=== PATIENT | male | born 1955 | race Caucasian/White ===

== ENCOUNTER → 2019-07-07 | Outpatient (CLI) | payer BC ==
--- NOTE | 2019-07-07 15:04 | PCVCIMAG ---
APPROVED REPORT Indications Syncope Doppler Spectral Velocity Analysis PSV / EDVPSV / EDV ECA (R) 101 / 9 cm/sECA (L) 86 / 12 cm/s dICA (R) 71 / 25 cm/sdICA (L) 78 / 20 cm/s Saud (R) 76 / 23 cm/smICA (L) 83 / 26 cm/s pICA (R) 64 / 16 cm/spICA (L) 63 / 21 cm/s Bulb (R) 67 / 15 cm/sBulb (L) 81 / 16 cm/s dCCA (R) 75 / 16 cm/sdCCA (L) 86 / 19 cm/s mCCA (R) 82 / 19 cm/smCCA (L) 114 / 20 cm/s Vert (R) 66 / 23 cm/sVert (L) 41 / 10 cm/s ICA/CCA 1.01ICA/CCA 0.97 Basic Measurements Blood Pressure: Pulses: Right Left RightLeft Brachial(Sitting) 136/98agFo442/86mmHgTemporal Real Time B-Mode Imaging Vert. (R)AntegradeVert. (L)Antegrade Findings The right carotid bulb has minimal plaque. The right proximal internal carotid artery shows no significant stenosis. The right common carotid artery shows no significant stenosis. The right external carotid artery shows no significant stenosis. The left carotid bulb has minimal plaque. The left proximal internal carotid artery shows no significant stenosis. The left common carotid artery shows no significant stenosis. The left external carotid artery shows no significant stenosis. Conclusion 1. Minimal bilateral plaquing without significant stenosis. 2. Antegrade vertebral flow.
--- NOTE | 2019-07-08 09:27 | PCVCIMAG ---
APPROVED REPORT Study performed: 07/07/2019 14:35:53 Exam: Stress Echocardiogram Indication: Syncope, Abn EKG Patient Location: Echo lab Stress Nurse: Mary Lou Daniel RN Room #: 2 Status: routine Ht: 5 ft 8 in HR: 52 bpm BP: 130/86 mmHg Rhythm: NSR Medical History Medical History: No history of CAD Previous Cardiac Procedures: none Pretest Chest Pain Characteristics: No chest pain Exercise History: Physically active- training for [employer] Procedure The patient underwent an Exercise Stress Test using the Maged Protocol. Blood pressure, heart rate, and EKG were monitored. An Echocardiogram was performed by restaurant maintenance technician in four stages in quad fashion. At peak stress, four selected images were obtained and placed side by side with resting images for comparison. Stress Test Details Stress Test: Exercise stress testing was performed using a Maged protocol. HR Resting HR: 52 bpmMax Heart Rate (APMHR): 157 bpm Max HR Achieved: 160 bpmTarget HR (85% APMHR): 133 bpm % of APMHR: 101 Recovery HR: 90 bpm HR response to stress: Normal HR response to stress BP Resting BP: 130/86+ mmHg Max BP: 160/74 mmHg Recovery BP: 128/72 mmHg BP response to stress: Normal blood pressure response to stress. ECG Resting ECG: Sinus Rhythm, NSSTT changes, long Q-T Stress ECG: Sinus Rhythm, nonspecific ST-T abnormalities ST Change: Downsloping ST depression Maximum ST Deviation: 3 mm Arrhythmia: Rare PVCs Recovery ECG: ST depression, prolonged Q-T Recovery ST Change: Ischemic Recovery ST Deviation: 3 mm Recovery Arrhythmia: occ PVCs Clinical Reason for Termination: Maximal effort Stress Symptoms: fatigue Exercise duration: 21 min 01 sec Highest Stage Achieved: Stage 7: 6.0 mph at 22% grade. Exercise capacity: 24.1 METs Overall Exercise Capacity for Age: Excellent Scale: Active No complications. Stress ECG Conclusion The patient exercised according to the MAGED protocol for 21:01 mins; achieving a work level of 24.1 METS. The resting heart rate of 52 bpm pradeep to a maximum heart rate of 160 bpm. This value represent 101% of the maximal, age-predicted heart rate. The resting blood pressure of 130/86 mmHg, pradeep to a maximum blood pressure of 160/74mmHg. The exercise test was stopped due to fatigue. Pre-Stress Echo The resting Echocardiogram showed normal left ventricular contractility with an estimated Ejection Fraction of about 55-60%. Normal wall motion in all segments on baseline images. Post-Stress Echo The stress Echocardiogram showed normalabnormal left ventricular contractility with an estimated Ejection Fraction of about 65%. Hypokinesis of anterior wall and septum Conclusion Clinical Response: Non-ischemic Exercise Capacity: Superior Stress ECG Response: Ischemic Stress Echo Images: Ischemic Abnormal stress echocardiogram with maximal exercise stress. No prior study available for comparison. <Conclusion> Abnormal stress echocardiogram with maximal exercise stress.
== END | disposition home or self-care (01) ==
LOC: PCVCIMAG 13:45
PROVIDERS: ATTEND Internal Medicine
DX: R94.31 Abnormal electrocardiogram [ECG] [EKG] (principal); R55 Syncope and collapse
CPT/HCPCS: 93325; 93351; 93880